=== PATIENT | female | born 1990 | race Caucasian/White ===

== ENCOUNTER 2018-02-07 02:35 | Emergency (ER) | payer OTHER, BC ==
[~2018-02-07] VITALS: Ht 162.6 cm; Wt 79.8 kg
[2018-02-07 02:40] VITALS: Ht 162.6 cm; Wt 79.8 kg
[2018-02-07 03:23] LABS: PLATELET COUNT 322 x10^3mcL (130-400)
[2018-02-07 03:27] LABS: BASOPHIL % 0 % (0-2); RED CELL DISTRIBUTION WIDTH 15.1 % (11.5-14.5)
[2018-02-07 03:29] LABS: CALCIUM 8.7 mg/dL (8.5-10.1); CARBON DIOXIDE 28.7 mmol/L (21-32); CHLORIDE SERUM 103 mmol/L (98-107); CREATININE SERUM 0.8 mg/dL (0.6-1.0); GFR1 > 60 mL/min; GLUCOSE SERUM 177 mg/dL (74-106); POTASSIUM SERUM 3.9 mmol/L (3.5-5.1); SODIUM SERUM 142 mmol/L (136-145)
[2018-02-07 03:34] LABS: ALBUMIN 3.9 g/dL (3.4-5.0); ALKALINE PHOSPHATASE 216 U/L (46-116); ALT/SGPT 656 U/L (14-59); AST/SGOT 416 U/L (15-37); BILIRUBIN TOTAL 3.84 mg/dL (0.20-1.00)
[2018-02-07 03:39] LABS: TOTAL PROTEIN, SERUM 8.8 g/dL (6.4-8.2)
[2018-02-07 04:31] LABS: LIPASE 15911 IU/L (73-393)
[2018-02-07 06:01] VITALS: BP 128/76
== END 2018-02-07 07:13 | disposition short-term general hospital (02) ==
LOC: ED 02:35
PROVIDERS: Emergency Medicine
DX: K85.10 Biliary acute pancreatitis without necrosis or infection (principal)
CPT/HCPCS: J2270; J2543; J3010; Q0092; Q0162